=== PATIENT | female | born 1975 | race Caucasian/White ===

== ENCOUNTER 2017-10-04 14:11 | Emergency (ER) | payer OTHER ==
[2017-10-04 14:18] VITALS: BP 131/78; PULSE 84; TEMP 97.9; BMI 31.1
--- NOTE | 2017-10-04 14:30 | PDOC ---
History of Present Illness - General Chief Complaint: Vaginal Bleeding Stated Complaint: 5WKS,BLEEDING History Source: Patient Exam Limitations: No Limitations - History of Present Illness Travel History: No Initial Comments: 10/04/17 15:54 This 42-year-old female presents to the emergency room with complaints of vaginal bleeding. She states that she is approximately 5 weeks . She's been having some vaginal bleeding since last evening. No past medical history Past History - Past Medical History Allergies/Adverse Reactions: Allergies Allergy/AdvReac Type Severity Reaction Status Date / Time Penicillins Allergy Verified 10/04/17 14:18 Home Medications: Ambulatory Orders No122/Iron/Folic Acid [ Multi Tablet] 1 each PO DAILY 10/04/17 COPD: No - Reproductive History Is Patient Now?: Yes (#): 4 Para: 1 Spontaneous : 2 - Suicide/Smoking/Psychosocial Hx Smoking History: Never smoked Information on smoking cessation initiated: No Hx Alcohol Use: No Drug/Substance Use Hx: No Substance Use Type: None Review of Systems - Review of Systems Able to Perform ROS?: Yes Is the patient limited Welsh proficient: Yes ABD/GI: Yes: Abdominal cramping, Other (vaginal bleeding) : No: Symptoms Reported, Dysuria All Other Systems: Reviewed and Negative *Physical Exam - Vital Signs Last Vital Signs Temp Pulse Resp BP Pulse Ox 97.9 F 84 19 131/78 99 10/04/17 14:16 10/04/17 14:16 10/04/17 14:16 10/04/17 14:16 10/04/17 14:16 - Physical Exam HEENT: positive: Normal Voice Respiratory/Chest: positive: Lungs Clear Cardiovascular: positive: Regular Rate Female Pelvic Exam: positive: cervical os closed, vaginal bleeding Gastrointestinal/Abdominal: positive: Normal Bowel Sounds, Flat, Soft Extremity: positive: Normal Inspection, Normal Range of Motion Integumentary: positive: Dry, Warm Neurologic: positive: Fully Oriented, Alert ED Treatment Course - LABORATORY CBC & Chemistry Diagram: 10/04/17 14:37 Medical Decision Making - Medical Decision Making 10/04/17 15:56 Patient was seen and examined. Patient was sent in for transvaginal ultrasound. There is no live fetus at that present time. Beta hCG is 1.7. She may have been however it is no longer a viable fetus and has been expelled. I've given her her documentation to follow-up with her [facility]. She has a scheduled appointment on the . *DC/Admit/Observation/Transfer Diagnosis at time of Disposition: Miscarriage - Discharge Dispostion Disposition: HOME Condition at time of disposition: Stable Admit: No - Referrals - Patient Instructions Printed Discharge Instructions: DI for Miscarriage Additional Instructions: Discharge instructions 1. Please follow up with your primary physician within the next few days and explain that you have been seen here in the Emergency Room. Present them with the reports that I have given you on discharge 2. If you experience any worsening of symptoms, such as heavy bleeding or clotting please return to the ER 3. Rest, no tampon use, no sexual intercourse, no douching until follow up 4. Drink plenty of water, rest with feet up - Post Discharge Activity Forms/Work/School Notes: Back to Work
--- NOTE | 2017-10-04 14:55 | PDOC ---
*Physical Exam - Vital Signs Last Vital Signs Temp Pulse Resp BP Pulse Ox 97.9 F 84 19 131/78 99 10/04/17 14:16 10/04/17 14:16 10/04/17 14:16 10/04/17 14:16 10/04/17 14:16 - Physical Exam Comments: 10/04/17 14:55 The patient was examined by [REJI Osorio] under my direct supervision. I personally evaluated the patient. I concur with the above findings and the plan of care. ED Treatment Course - LABORATORY CBC & Chemistry Diagram: 10/04/17 14:37
[2017-10-04 15:00] LABS: BASO % 0.6 % (0-2.0); EOS % 1.9 % (0-4.5); HEMATOCRIT 39.5 % (32.4-45.2); HEMOGLOBIN 13.5 GM/dL (10.7-15.3); LYMPH % 29.3 % (8-40); MCH 31.2 pg (25.7-33.7); MCHC 34.2 g/dl (32.0-36.0); MEAN CELL VOLUME 91.1 fl (80-96); MEAN PLT VOLUME 8.2 fl (7.5-11.1); MONO % 5.5 % (3.8-10.2); NEUT % 62.7 % (42.8-82.8); PLATELET COUNT 353 K/MM3 (134-434); RBC 4.34 M/mm3 (3.60-5.2); RDW 13.3 % (11.6-15.6); URINE APPEARANCE SLCLOUDY; URINE BILIRUBIN NEGATIVE (NEGATIVE); URINE BLOOD 3+ (NEGATIVE); URINE COLOR LTYELLOW; URINE GLUCOSE (UA) NEGATIVE (NEGATIVE); URINE KETONE NEGATIVE (NEGATIVE); URINE NITRITE NEGATIVE (NEGATIVE); URINE PROTEIN NEGATIVE (NEGATIVE); URINE UROBILINOGEN NEGATIVE mg/dL (0.2-1.0); WHITE BLOOD COUNT 10.1 K/mm3 (4.0-10.0)
[2017-10-04 15:01] LABS: URINE LEUK ESTERASE 1+ (NEGATIVE)
[2017-10-04 15:03] LABS: EPI CELLS RARE /HPF (FEW); URINE MUCUS RARE
== END 2017-10-04 16:33 | disposition home or self-care (01) ==
LOC: JER 14:11
DX: O03.9 Complete or unspecified spontaneous abortion without complication (principal)
CPT/HCPCS: 36415; 76817-TC; 81003; 81015; 84702; 85025; 86850; 86900; 86901; 99282-25

== ENCOUNTER 2018-12-19 08:28 | Emergency (ER) | payer OTHER ==
[2018-12-19 08:37] VITALS: BP 142/81; PULSE 90; TEMP 99.1; BMI 32.0
--- NOTE | 2018-12-19 09:29 | PDOC ---
*Physical Exam - Vital Signs Last Vital Signs Temp Pulse Resp BP Pulse Ox 99.1 F 90 17 142/81 100 12/19/18 08:32 12/19/18 08:32 12/19/18 08:32 12/19/18 08:32 12/19/18 08:32 Medical Decision Making - Medical Decision Making 12/19/18 09:29 Ms Klein is a 43 yo F no past medical history p/w persistent headaches x 4 days Was seen in urgent care, told she possibly had sinusitis Was recommended to come to the ER for confirmation of this dx by CT No fevers or chills No head trauma Has not taken anything for pain CT head negative Will plan to discharge to home Follow up with PMD and neurology Pt seen by Midlevel Provider under my direct supervision Ancillary studies reviewed I agree with plan as outlined by Midlevel Provider 12/20/18 09:31 *DC/Admit/Observation/Transfer Diagnosis at time of Disposition: Headache, Sinusitis - Discharge Dispostion Disposition: HOME Condition at time of disposition: Stable - Prescriptions Prescriptions: Sumatriptan Succinate [Imitrex] 25 mg PO Q6H PRN #20 tablet PRN Reason: headache - Referrals Referrals: Corey Jefferson MD [Staff Physician] - - Patient Instructions Printed Discharge Instructions: Tension Headache, DI for Sinus Headache Additional Instructions: Your head CATS scan was normal. Your symptoms likely from sinus headaches or tension headache. Take medications as prescribed. Follow-up with referred neurologist if no improvement in 3 days - Post Discharge Activity Forms/Work/School Notes: Back to Work
[2018-12-19] MEDS ORDERED: ACETAMINOPHEN/CAFFEINE/BUTALBITAL 1 TAB PO ONE (09:30)
[2018-12-19] MEDS ORDERED: ACETAMINOPHEN/CAFFEINE/BUTALBITAL 1 TAB ONE (09:39)
--- NOTE | 2018-12-19 09:43 | PDOC ---
History of Present Illness - General Chief Complaint: Headache Stated Complaint: HEADACHES Time Seen by Provider: 12/19/18 09:08 History Source: Patient Exam Limitations: Clinical Condition - History of Present Illness Initial Comments: 12/19/18 09:38 Patient with no significant past medical history present with complaint of 4 day history of persistent headaches which she describes as 10 out of 10 pressure in the head and heaviness behind bilateral eyes. Patient was seen in urgent care yesterday for symptoms and advised to come to ED for head CT. Patient denies blurry vision, change in vision, nausea, vomiting or photophobia. Patient has not been taking anything for headaches. Denies any other symptoms. Denies history of headaches Timing/Duration: other (4 days) Past History - Past Medical History Allergies/Adverse Reactions: Allergies Allergy/AdvReac Type Severity Reaction Status Date / Time Penicillins Allergy Verified 12/19/18 08:32 Home Medications: Ambulatory Orders Sumatriptan Succinate [Imitrex] 25 mg PO Q6H PRN #20 tablet 12/19/18 COPD: No - Reproductive History (#): 4 Para: 1 Spontaneous : 2 - Immunization History Immunization Up to Date: Yes - Suicide/Smoking/Psychosocial Hx Smoking History: Never smoked Information on smoking cessation initiated: No Hx Alcohol Use: No Drug/Substance Use Hx: No Substance Use Type: None Review of Systems - Review of Systems Able to Perform ROS?: Yes Is the patient limited Kosovan proficient: No Constitutional: No: Weakness HEENTM: Yes: See HPI, Nose Congestion. No: Symptoms Reported, Blurred Vision, Tearing, Recent change in vision, Double Vision Respiratory: No: Symptoms reported, See HPI, Cough, Orthopnea, Shortness of Breath, SOB with Exertion, SOB at Rest, Stridor, Wheezing, Productive cough, Hemoptysis, Other Cardiac (ROS): No: Symptoms Reported, See HPI, Chest Pain, Edema, Irregular Heart Rate, Lightheadedness, Palpitations, Syncope, Chest Tightness, Other ABD/GI: No: Nausea, Vomiting Neurological: Yes: Headache. No: Ataxia, Dizziness All Other Systems: Reviewed and Negative *Physical Exam - Vital Signs Last Vital Signs Temp Pulse Resp BP Pulse Ox 99.1 F 90 17 142/81 100 12/19/18 08:32 12/19/18 08:32 12/19/18 08:32 12/19/18 08:32 12/19/18 08:32 - Physical Exam Comments: 12/19/18 09:42 GENERAL: Well developed, well nourished. Awake and alert. No acute distress. HEENT: Normocephalic, atraumatic. PERRLA, EOMI. No conjunctival pallor. Sclera are non-icteric. Moist mucous membranes. Oropharynx is clear. NECK: Supple. Full ROM. CARDIOVASCULAR: Regular rate and rhythm. No murmurs, rubs, or gallops. Distal pulses are 2+ and symmetric. PULMONARY: No evidence of respiratory distress. Lungs clear to auscultation bilaterally. No wheezing, rales or rhonchi. MUSCULOSKELETAL Normal range of motion at all joints. EXTREMITIES: No cyanosis. No clubbing. No edema. SKIN: Warm and dry. Normal capillary refill. No rashes. No jaundice. NEUROLOGICAL: Alert, awake, appropriate. Gait is normal without ataxia.Normal tandem walking. Normal [id number] and to hand coordination. PSYCHIATRIC: Cooperative. Good eye contact. Appropriate mood General Appearance: Yes: Nourished, Appropriately Dressed. No: Apparent Distress ED Treatment Course - RADIOLOGY Radiology Studies Ordered: Category Date Time Status HEAD CT WITHOUT CONTRAST [CT] Stat CT Scan 12/19/18 09:31 Ordered Medical Decision Making - Medical Decision Making 12/19/18 09:39 Patient with no significant past medical history present with complaint of 4 day history of persistent headaches which she describes as 10 out of 10 pressure in the head and heaviness behind bilateral eyes. Patient was seen in urgent care yesterday for symptoms and advised to come to ED for head CT. Patient denies blurry vision, change in vision, nausea, vomiting or photophobia. Patient has not been taking anything for headaches. Denies any other symptoms. Denies history of headaches Normal neuro exam. Extra clear muscle intact and pupil equal and refracted to light bilateral. Symptoms likely sinus headache versus tension headache. Urine tests ordered. Fioricet ordered for headache. Head CT without contrast ordered. Treat based on CT results 12/19/18 11:[address] negative. Patient report improvement in SOOD and but still have mild headache. Patient report prescription for sinusitis sent to pharmacy by urgent care. Toradol 30mg IM ordered for headache. Patient stable for discharge on imitrex prn for SOOD and neurology follow-up *DC/Admit/Observation/Transfer Diagnosis at time of Disposition: Headache Qualifiers: Headache type: unspecified Headache chronicity pattern: acute headache Intractability: not intractable Qualified Code(s): R51 - Headache Sinusitis Qualifiers: Sinusitis location: unspecified location Chronicity: acute Recurrence: non- recurrent Qualified Code(s): J01.90 - Acute sinusitis, unspecified - Discharge Dispostion Disposition: HOME Condition at time of disposition: Stable Decision to Admit order: No - Prescriptions Prescriptions: Sumatriptan Succinate [Imitrex] 25 mg PO Q6H PRN #20 tablet PRN Reason: headache - Referrals Referrals: Corey Jefferson MD [Staff Physician] - - Patient Instructions Printed Discharge Instructions: Tension Headache, DI for Sinus Headache Additional Instructions: Your head CATS scan was normal. Your symptoms likely from sinus headaches or tension headache. Take medications as prescribed. Follow-up with referred neurologist if no improvement in 3 days - Post Discharge Activity Forms/Work/School Notes: Back to Work
[2018-12-19] MEDS ORDERED: KETOROLAC TROMETHAMINE 30 MG/1 ML VIAL IM ONE (11:40)
[2018-12-19] MEDS ORDERED: KETOROLAC TROMETHAMINE 30 MG/1 ML VIAL ONE (11:47)
== END 2018-12-19 11:51 | disposition home or self-care (01) ==
LOC: JER 08:28
PROC: 3E0233Z Introduction of Anti-inflammatory into Muscle, Percutaneous Approach (ICD-10-PCS; principal; 2018-12-19)
DX: R51 Headache (principal); J01.90 Acute sinusitis, unspecified
CPT/HCPCS: 70450-TC; 84703; 96372; 99282-25

== ENCOUNTER 2022-09-25 14:31 | Emergency (ER) | payer OTHER ==
[2022-09-25 14:39] VITALS: BP 118/73; PULSE 73; RESP 18; TEMP 98; BMI 30.2
[2022-09-25] MEDS ORDERED: KETOROLAC TROMETHAMINE 30 MG/1 ML VIAL ONE (14:58)
[2022-09-25] MEDS ORDERED: KETOROLAC TROMETHAMINE 30 MG/1 ML VIAL IM ONE (14:58)
== END 2022-09-25 15:44 | disposition home or self-care (01) ==
LOC: JERFT 14:31
PROC: 3E023GC Introduction of Other Therapeutic Substance into Muscle, Percutaneous Approach (ICD-10-PCS; principal; 2022-09-25)
DX: S42.291A Other displaced fracture of upper end of right humerus, initial encounter for closed fracture (principal); W01.0XXA Fall on same level from slipping, tripping and stumbling without subsequent striking against object, initial encounter
CPT/HCPCS: 73000-TC-RT-FY; 73030-TC-RT-FY; 99284-25

== ENCOUNTER 2023-10-19 10:08 | Inpatient (IN) | payer OTHER ==
[2023-10-19 10:14] VITALS: BMI 30.2
[2023-10-19] MEDS: ACETAMINOPHEN 1000 MG/100 ML BAG IVPB ONE (11:03)
[2023-10-19] MEDS: FAMOTIDINE 20 MG/50 ML IVPB 20 MG/50 ML MG IVPB ONE (11:03)
[2023-10-19] MEDS: SODIUM CHLORIDE 1,000 ML IV STA (11:04)
[2023-10-19] MEDS ORDERED: ACETAMINOPHEN INJECTION 100 ML IVPB ONE (11:05)
[2023-10-19] MEDS ORDERED: FAMOTIDINE 20 MG/50 ML IVPB 20 MG/50 ML MG IVPB ONE (11:05)
[2023-10-19 11:14] LABS: BASO % 1.1 % (0-2.0); EOS % 0.1 % (0-4.5); HEMATOCRIT 40.7 % (32.4-45.2); HEMOGLOBIN 13.7 GM/dL (10.7-15.3); LYMPH % 12.5 % (8-40); MCH 30.5 pg (25.7-33.7); MCHC 33.7 g/dl (32.0-36.0); MEAN CELL VOLUME 90.5 fl (80-96); MEAN PLT VOLUME 8.1 fl (7.5-11.1); MONO % 3.5 % (3.8-10.2); NEUT % 82.8 % (42.8-82.8); PLATELET COUNT 316 10^3/uL (134-434); RDW 12.8 % (11.6-15.6); WHITE BLOOD COUNT 10.1 K/mm3 (4.0-10.0)
[2023-10-19 11:24] LABS: INR 1.03 (0.83-1.09); PROTHROMBIN TIME (PATIENT) 11.9 SEC (9.7-13.0)
[2023-10-19 11:28] LABS: HCG,QUALITATIVE URINE Negative
[2023-10-19 11:28] LABS: ACTIVATED PTT 27.6 SECONDS (25.2-36.5)
[2023-10-19 11:29] LABS: EPI CELLS >36 /uL (0-25.1); HYALINE CASTS 0 /uL (0-3.1); PH,URINE 5.5 (5.0-8.0); URINE APPEARANCE CLEAR; URINE BACTERIA 1111 /uL (0-1359); URINE BILIRUBIN NEGATIVE (NEGATIVE); URINE COLOR YELLOW; URINE GLUCOSE (UA) NEGATIVE (NEGATIVE); URINE KETONE NEGATIVE (NEGATIVE); URINE LEUK ESTERASE TRACE (NEGATIVE); URINE NITRITE NEGATIVE (NEGATIVE); URINE PROTEIN NEGATIVE (NEGATIVE); URINE RBC 73 /uL (0-23.9); URINE UROBILINOGEN 0.2 mg/dL (0.2-1.0); URINE WBC 31 /uL (0-25.8)
[2023-10-19 11:44] LABS: POTASSIUM 4.9 mmol/L (3.5-5.1)
[2023-10-19 11:46] LABS: CALCIUM 9.2 mg/dL (8.5-10.1)
[2023-10-19 11:47] LABS: ALBUMIN 3.7 g/dl (3.4-5.0); BLOOD UREA NITROGEN 9.1 mg/dL (7-18)
[2023-10-19 11:50] LABS: CREATININE 0.6 mg/dL (0.55-1.3)
[2023-10-19 11:52] LABS: BILIRUBIN,TOTAL 0.6 mg/dL (0.2-1); TOT PROT 7.3 g/dl (6.4-8.2)
[2023-10-19] MEDS ORDERED: CEFTRIAXONE 1 GM/50 ML BAG ONE (14:27)
[2023-10-19] MEDS: CEFTRIAXONE 1 GM in DEXTROSE 5%-WATER - 100 ML IVPB ONE (14:38)
[2023-10-19] MEDS: DEXTROSE 5%-0.45% SALINE 1,000 ML IV SCH (19:29)
[2023-10-19 20:21] VITALS: RESP 18
[2023-10-20] MEDS: CEFTRIAXONE 1 GM in DEXTROSE 5%-WATER - 50 ML IVPB SCH (10:47)
[2023-10-20] MEDS: ACETAMINOPHEN 1000 MG/100 ML BAG IVPB ONE (13:24)
[2023-10-21 09:39] LABS: BASO % 0.7 % (0-2.0); HEMATOCRIT 38.8 % (32.4-45.2); LYMPH % 19.4 % (8-40); MCH 30.5 pg (25.7-33.7); MCHC 33.6 g/dl (32.0-36.0); MEAN CELL VOLUME 90.8 fl (80-96); MEAN PLT VOLUME 8.8 fl (7.5-11.1); MONO % 4.6 % (3.8-10.2); NEUT % 73.3 % (42.8-82.8); PLATELET COUNT 271 10^3/uL (134-434); RBC 4.27 M/mm3 (3.60-5.2); RDW 12.6 % (11.6-15.6); WHITE BLOOD COUNT 8.1 K/mm3 (4.0-10.0)
[2023-10-21 09:45] LABS: POTASSIUM 3.8 mmol/L (3.5-5.1)
[2023-10-21 09:49] LABS: CALCIUM 8.7 mg/dL (8.5-10.1)
[2023-10-21 09:50] LABS: ALBUMIN 3.4 g/dl (3.4-5.0); BLOOD UREA NITROGEN 3.3 mg/dL (7-18)
[2023-10-21 09:53] LABS: CREATININE 0.6 mg/dL (0.55-1.3)
[2023-10-21 09:54] LABS: BILIRUBIN,TOTAL 0.3 mg/dL (0.2-1); TOT PROT 6.3 g/dl (6.4-8.2)
[2023-10-21] MEDS ORDERED: ACETAMINOPHEN 325 MG TABLET (FP) PO PRN (11:03)
[2023-10-21 14:10] VITALS: BP 101/56; PULSE 61; TEMP 98
== END 2023-10-21 15:05 | disposition home or self-care (01) | DRG 249 ==
LOC: JER 10:08 → JERBED 14:07 → J5S 19:34
PROVIDERS: ADMIT Internal Medicine; ATTEND Internal Medicine
DX: K52.9 Noninfective gastroenteritis and colitis, unspecified (principal); K56.7 Ileus, unspecified
CPT/HCPCS: 36415; 74019-TC-FY; 74021-TC-FY; 74177-TC; 80053; 81003; 84484; 84703; 85025; 85610; 85730; 86140; 87045; 87046; 87086; 87205; 87209; 93005; 93010; 99285-25; J0131; Q9967